=== PATIENT | female | born 1995 | race Caucasian/White ===

== ENCOUNTER 2018-09-05 11:56 | Outpatient (CLI) | payer MEDICAID ==
[~2018-09-05] VITALS: Ht 172.7 cm; Wt 89.1 kg
[2018-09-05 12:31] VITALS: BP 117/73
[2018-09-05 12:42] LABS: MICROSCOPIC INDICATED
[2018-09-05 12:49] LABS: AMPHETAMINE SCREEN, URINE Negative (Negative); BARBITURATE SCREEN, URINE Negative (Negative); BENZODIAZEPINE SCREEN, URINE Negative (Negative); CANNABINOID SCREEN, URINE Positive (Negative); COCAINE SCREEN, URINE Negative (Negative); METHADONE SCREEN, URINE Negative (Negative); OPIATE SCREEN, URINE Negative (Negative)
[2018-09-05] MEDS ORDERED: PREN1TAB60 PO (13:10)
== END 2018-09-05 13:37 | disposition home or self-care (01) ==
LOC: LDOP 11:56
PROVIDERS: ATTEND Student in an Organized Health Care Education/Training Program
DX: O36.8120 Decreased fetal movements, second trimester, not applicable or unspecified (principal); Z3A.00 Weeks of gestation of pregnancy not specified
CPT/HCPCS: 59025; 80307; 81001; 87086; 99201; G0463

== ENCOUNTER → 2018-10-23 | Outpatient (CLI) | payer SELFPAY ==
[~2018-10-23] VITALS: Ht 172.7 cm; Wt 100.0 kg
[~2018-10-23] MED LIST: PREN1TAB60 PO
[2018-10-23 13:48] VITALS: BP 119/75
[2018-10-23 13:49] LABS: MICROSCOPIC INDICATED
[2018-10-23 14:43] LABS: AMPHETAMINE SCREEN, URINE Negative (Negative); BARBITURATE SCREEN, URINE Negative (Negative); BENZODIAZEPINE SCREEN, URINE Negative (Negative); CANNABINOID SCREEN, URINE Negative (Negative); COCAINE SCREEN, URINE Negative (Negative); METHADONE SCREEN, URINE Negative (Negative); OPIATE SCREEN, URINE Negative (Negative)
== END | disposition home or self-care (01) ==
LOC: LDOP 13:12
PROVIDERS: ATTEND Student in an Organized Health Care Education/Training Program
DX: O26.893 Other specified pregnancy related conditions, third trimester (principal); Z3A.32 32 weeks gestation of pregnancy; R10.2 Pelvic and perineal pain
CPT/HCPCS: 59025; 80307; 81001; 87086; 99211; G0463

== ENCOUNTER 2018-11-11 00:22 | Outpatient (CLI) | payer MEDICAID ==
[~2018-11-11] VITALS: Ht 172.7 cm; Wt 100.0 kg
[2018-11-11 00:38] VITALS: BP 119/71
[2018-11-11 00:56] LABS: MICROSCOPIC INDICATED
== END 2018-11-11 01:34 | disposition home or self-care (01) ==
LOC: LDOP 00:22
PROVIDERS: ATTEND Student in an Organized Health Care Education/Training Program
DX: O63.9 Long labor, unspecified (principal); O26.893 Other specified pregnancy related conditions, third trimester; R50.9 Fever, unspecified; Z3A.34 34 weeks gestation of pregnancy
CPT/HCPCS: 59025; 81001; 87086; 99211; G0463

== ENCOUNTER 2018-11-24 18:13 | Outpatient (CLI) | payer MEDICAID ==
[~2018-11-24] VITALS: Ht 172.7 cm; Wt 104.0 kg
[2018-11-24 18:17] VITALS: BP 131/77
[2018-11-24 18:50] LABS: BASOPHILS # (AUTO) 0.04 x10^3/uL (0-0.1); BASOPHILS % (AUTO) 0 % (0-1); EOSINOPHILS # (AUTO) 0.05 x10^3/uL (0-0.4); EOSINOPHILS % (AUTO) 0 % (1-7); LYMPHOCYTES # (AUTO) 2.29 x10^3/uL (1-3.4); LYMPHOCYTES % (AUTO) 15 % (22-44); MD NO; MEAN CORPUSCULAR HEMOGLOBIN 32.5 pg (27.0-34.8); MEAN CORPUSCULAR HGB CONC 34.5 g/dL (32.4-35.8); MEAN PLATELET VOLUME 9.2 fL (7.4-10.4); MONOCYTES % (AUTO) 5 % (2-9); NEUTROPHILS % (AUTO) 79 % (42-75); PLATELET COUNT 193 x10^3/uL (130-400); RED BLOOD COUNT 3.71 x10^6/uL (3.82-5.3); RED CELL DISTRIBUTION WIDTH 12.9 % (9.6-15.2)
[2018-11-24 18:51] LABS: AMPHETAMINE SCREEN, URINE Negative (Negative); BARBITURATE SCREEN, URINE Negative (Negative); BENZODIAZEPINE SCREEN, URINE Negative (Negative); CANNABINOID SCREEN, URINE Negative (Negative); COCAINE SCREEN, URINE Negative (Negative); METHADONE SCREEN, URINE Negative (Negative); OPIATE SCREEN, URINE Negative (Negative)
[2018-11-24 19:03] LABS: ALBUMIN 2.4 g/dL (3.4-5.0); ANION GAP 6 mmol/L (5-15); CALCIUM 8.2 mg/dL (8.5-10.1); CHLORIDE 108 mmol/L (98-107)
[2018-11-24 19:04] LABS: PROTEIN/CREATININE RATIO,URINE < 101 (0-200); TOTAL PROTEIN,URINE RANDOM < 5 mg/dL (0-12)
[2018-11-24 19:06] LABS: ALANINE AMINOTRANSFERASE 14 U/L (12-78); ALKALINE PHOSPHATASE 112 U/L (45-117); BILIRUBIN,TOTAL 0.2 mg/dL (0.2-1.0); CREATININE 0.65 mg/dL (0.55-1.02); TOTAL PROTEIN 6.4 g/dL (6.4-8.2)
[2018-11-24 19:45] LABS: MICROSCOPIC AUTO
[2018-11-24 19:47] LABS: CULTURE INDICATED? YES
== END 2018-11-24 20:02 | disposition home or self-care (01) ==
LOC: LDOP 18:13
PROVIDERS: ATTEND Student in an Organized Health Care Education/Training Program
DX: O13.3 Gestational [pregnancy-induced] hypertension without significant proteinuria, third trimester (principal); O36.8130 Decreased fetal movements, third trimester, not applicable or unspecified; R51 Headache
CPT/HCPCS: 36415; 59025; 80053; 80307; 81001; 82570; 84156; 84550; 85025; 87086; 99211; G0463

== ENCOUNTER 2018-11-29 08:34 | Inpatient (IN) | payer MEDICAID ==
[~2018-11-29] VITALS: Ht 172.7 cm; Wt 104.1 kg
[2018-11-29 08:44] VITALS: BP 139/78
[2018-11-29 09:04] LABS: AMPHETAMINE SCREEN, URINE Negative (Negative); BARBITURATE SCREEN, URINE Negative (Negative); BENZODIAZEPINE SCREEN, URINE Negative (Negative); CANNABINOID SCREEN, URINE Negative (Negative); COCAINE SCREEN, URINE Negative (Negative); METHADONE SCREEN, URINE Negative (Negative); OPIATE SCREEN, URINE Negative (Negative)
[2018-11-29] MEDS ORDERED: METOCLOPRAMIDE 5 MG/ML, 2ML ONE (09:22)
[2018-11-29] MEDS ORDERED: OXYTOCIN 30U/ 0.9% NaCL 500ML 500 ML ONE (09:22)
[2018-11-29] MEDS ORDERED: SODIUM CITRATE/CITRIC ACID 30 ML UDC ONE (09:22)
[2018-11-29] MEDS ORDERED: NEWBORN KIT ONE (09:22)
[2018-11-29] MEDS ORDERED: OXYTOCIN 30U/ 0.9% NaCL 500ML 500 ML IV SCH (09:42)
[2018-11-29] MEDS ORDERED: METOCLOPRAMIDE 5 MG/ML, 2ML IV ONE (10:00)
[2018-11-29] MEDS ORDERED: SODIUM CITRATE/CITRIC ACID 30 ML UDC PO ONE (10:00)
[2018-11-29] MEDS ORDERED: LACTATED RINGERS 1,000 ML IVBOLUS ONE (10:00)
[2018-11-29 10:05] LABS: BASOPHILS # (AUTO) 0.05 x10^3/uL (0-0.1); BASOPHILS % (AUTO) 0 % (0-1); EOSINOPHILS # (AUTO) 0.04 x10^3/uL (0-0.4); EOSINOPHILS % (AUTO) 0 % (1-7); LYMPHOCYTES # (AUTO) 2.12 x10^3/uL (1-3.4); LYMPHOCYTES % (AUTO) 16 % (22-44); MD NO; MEAN CORPUSCULAR HEMOGLOBIN 31.7 pg (27.0-34.8); MEAN CORPUSCULAR HGB CONC 33.5 g/dL (32.4-35.8); MEAN CORPUSCULAR VOLUME 94.7 fL (80-100); MEAN PLATELET VOLUME 9.3 fL (7.4-10.4); MONOCYTES # (AUTO) 0.91 x10^3/uL (0.2-0.8); MONOCYTES % (AUTO) 7 % (2-9); NEUTROPHILS # (AUTO) 9.83 x10^3/uL (1.8-6.8); NEUTROPHILS % (AUTO) 76 % (42-75); PLATELET COUNT 205 x10^3/uL (130-400); RED BLOOD COUNT 4.12 x10^6/uL (3.82-5.3); RED CELL DISTRIBUTION WIDTH 13.1 % (9.6-15.2)
[2018-11-29] MEDS: LACTATED RINGERS 1,000 ML IV SCH ×4 (10:17→23:04)
[2018-11-29] MEDS ORDERED: morphine SULFATE/PF 0.5 MG/ML, 10ML ONE (11:58)
[2018-11-29] MEDS ORDERED: OXYTOCIN 10 UNITS/ML, 1ML ONE (11:59)
[2018-11-29] MEDS ORDERED: CEFAZOLIN 1,000 MG ONE (11:59)
[2018-11-29] MEDS ORDERED: DEXAMETHASONE 4 MG/ML, 1ML ONE (11:59)
[2018-11-29] MEDS ORDERED: WATER-INJECTION,STERILE 10 ML IV ONE (11:59)
[2018-11-29] MEDS ORDERED: ONDANSETRON 2MG/ML, 2ML ONE (11:59)
[2018-11-29] MEDS: OXYTOCIN 30U/ 0.9% NaCL 500ML 500 ML IV SCH ×2 (13:04→23:04)
[2018-11-29] MEDS ORDERED: LACTATED RINGERS 1,000 ML IV SCH (13:04)
[2018-11-29] MEDS ORDERED: METHYLERGONOVINE 0.2 MG/ML IM PRN (13:30)
[2018-11-29] MEDS ORDERED: MEPERIDINE/PF 100 MG/ML IVPush PRN (13:30)
[2018-11-29] MEDS ORDERED: ONDANSETRON 2MG/ML, 2ML IV PRN (13:30)
[2018-11-29] MEDS ORDERED: morphine SULFATE 10 MG/ML, 1ML IVPush PRN ×2 (13:30→14:00)
[2018-11-29] MEDS: KETOROLAC 30 MG/1 ML IV SCH ×2 (13:30→19:30)
[2018-11-29] MEDS ORDERED: MEPERIDINE/PF 50 MG/ML IVPush PRN (13:30)
[2018-11-29] MEDS ORDERED: MISOPROSTOL 200 MCG TABLET PR PRN (13:30)
[2018-11-29] MEDS ORDERED: ACETAMINOPHEN 325 MG TABLET PO PRN (13:30)
[2018-11-29] MEDS ORDERED: OXYcodone 5 MG/5 ML ORAL.SOL UDC ONE (13:50)
[2018-11-29] MEDS ORDERED: NO SEDATIVES, TRANQUILIZERS OR ANTIEMETICS XX SCH (14:00)
[2018-11-29] MEDS ORDERED: DIPHENHYDRAMINE 50 MG/ML, 1ML IV PRN (14:00)
[2018-11-29] MEDS ORDERED: NALOXONE 0.4 MG/ML, 1ML IV PRN (14:00)
[2018-11-29] MEDS ORDERED: METOCLOPRAMIDE 5 MG/ML, 2ML IV PRN (14:00)
[2018-11-29] MEDS ORDERED: EPHEDRINE 50 MG/ML, 1ML IVPush PRN (14:00)
[2018-11-29] MEDS ORDERED: OXYcodone/APAP 5/325MG TABLET PO PRN (14:00)
[2018-11-29] MEDS ORDERED: ONDANSETRON 2MG/ML, 2ML IVPush PRN (14:00)
[2018-11-29] MEDS ORDERED: OXYcodone 5 MG/5 ML ORAL.SOL UDC PO PRN (14:30)
[2018-11-29] MEDS ORDERED: DEXTROSE 40%, 37.5 GM GEL ONE (14:33)
[2018-11-29 15:00] VITALS: BP 135/87
[2018-11-29] MEDS: KETOROLAC 30 MG/1 ML IVPush PRN ×2 (16:00→22:19)
[2018-11-29 20:00] VITALS: BP 124/79
[2018-11-29] MEDS: DOCUSATE 100 MG CAPSULE PO PRN (20:00)
[2018-11-29 20:57] LABS: MEAN CORPUSCULAR HEMOGLOBIN 31.9 pg (27.0-34.8); MEAN CORPUSCULAR HGB CONC 33.4 g/dL (32.4-35.8); MEAN CORPUSCULAR VOLUME 95.4 fL (80-100); MEAN PLATELET VOLUME 9.3 fL (7.4-10.4); PLATELET COUNT 192 x10^3/uL (130-400); RED BLOOD COUNT 3.75 x10^6/uL (3.82-5.3); RED CELL DISTRIBUTION WIDTH 12.9 % (9.6-15.2)
[2018-11-29 21:29] LABS: BASOPHILS % (AUTO) 0 % (0-1); EOSINOPHILS % (AUTO) 0 % (1-7); LYMPHOCYTES # (AUTO) 1.27 x10^3/uL (1-3.4); LYMPHOCYTES % (AUTO) 7 % (22-44); MD SCAN; MONOCYTES # (AUTO) 0.54 x10^3/uL (0.2-0.8); MONOCYTES % (AUTO) 3 % (2-9); NEUTROPHILS # (AUTO) 17.21 x10^3/uL (1.8-6.8); NEUTROPHILS % (AUTO) 91 % (42-75)
[2018-11-29] MEDS ORDERED: RHOGAM FROM BLOOD BANK 1 NOTE EA IM/IV ONE (22:30)
[2018-11-29 23:34] VITALS: BP 118/73
[2018-11-30] MEDS: KETOROLAC 30 MG/1 ML IV SCH ×4 (01:30→22:03)
[2018-11-30] MEDS: KETOROLAC 30 MG/1 ML IVPush PRN (04:02)
[2018-11-30 04:05] VITALS: BP 117/70
[2018-11-30 08:00] VITALS: BP 94/64
[2018-11-30] MEDS: PRENATAL VIT/IRON/FA 1 EACH TABLET PO SCH (09:00)
[2018-11-30] MEDS: LACTATED RINGERS 1,000 ML IV SCH (09:04)
[2018-11-30] MEDS: OXYTOCIN 30U/ 0.9% NaCL 500ML 500 ML IV SCH (09:04)
[2018-11-30] MEDS: DOCUSATE 100 MG CAPSULE PO PRN ×2 (09:36→22:04)
[2018-11-30] MEDS: OXYcodone/APAP 5/325MG TABLET PO PRN (17:00)
[2018-11-30 19:45] VITALS: BP 109/69
[2018-11-30] MEDS ORDERED: DIPH,PERTUSS(ACELL),TET VAC/PF NC IM-VACC ONE (19:49)
[2018-12-01] MEDS: OXYcodone/APAP 5/325MG TABLET PO PRN ×4 (02:44→19:45)
[2018-12-01] MEDS: KETOROLAC 30 MG/1 ML IV SCH (04:00)
[2018-12-01] MEDS ORDERED: IBUPROFEN 600 MG TABLET ONE (04:41)
[2018-12-01] MEDS: IBUPROFEN 600 MG TABLET PO PRN ×3 (04:42→19:45)
[2018-12-01 08:00] VITALS: BP 109/75
[2018-12-01] MEDS: DOCUSATE 100 MG CAPSULE PO PRN ×2 (08:20→19:45)
[2018-12-01] MEDS: PRENATAL VIT/IRON/FA 1 EACH TABLET PO SCH (08:20)
[2018-12-01] MEDS ORDERED: IBUPROFEN 600 MG TABLET PO PRN (13:30)
[2018-12-01 19:40] VITALS: BP 116/72
[2018-12-02] MEDS: OXYcodone IR 5MG TABLET PO PRN ×2 (01:07→15:53)
[2018-12-02] MEDS: IBUPROFEN 600 MG TABLET PO PRN ×4 (01:55→22:03)
[2018-12-02] MEDS: SIMETHICONE 80 MG CHEW TAB PO PRN ×3 (01:55→15:56)
[2018-12-02] MEDS ORDERED: MEASLES,MUMPS&RUBELLA VACC/PF 0.5 ML SQ-VACC ONE ×2 (06:36→07:00)
[2018-12-02] MEDS: DOCUSATE 100 MG CAPSULE PO PRN ×2 (09:05→22:03)
[2018-12-02] MEDS: PRENATAL VIT/IRON/FA 1 EACH TABLET PO SCH (09:06)
[2018-12-02] MEDS: OXYcodone/APAP 5/325MG TABLET PO PRN ×3 (09:06→19:14)
[2018-12-02 10:00] VITALS: BP 121/85
[2018-12-02 20:10] VITALS: BP 125/83
[2018-12-03] MEDS: OXYcodone/APAP 5/325MG TABLET PO PRN ×4 (04:07→19:36)
[2018-12-03] MEDS: IBUPROFEN 600 MG TABLET PO PRN ×3 (04:07→19:35)
[2018-12-03 07:30] VITALS: BP 112/76
[2018-12-03] MEDS: DOCUSATE 100 MG CAPSULE PO PRN ×2 (07:57→19:35)
[2018-12-03] MEDS: PRENATAL VIT/IRON/FA 1 EACH TABLET PO SCH (08:41)
[2018-12-03] MEDS ORDERED: OXYC-302 PO (10:39)
[2018-12-03] MEDS ORDERED: IBUP-1222 PO (10:39)
== END 2018-12-03 21:25 | disposition home or self-care (01) | DRG 788 ==
LOC: LDOP 08:34 → LDIP 09:47 → 2NW 15:06
PROVIDERS: ADMIT Student in an Organized Health Care Education/Training Program; ATTEND Student in an Organized Health Care Education/Training Program
PROC: 10D00Z1 Extraction of Products of Conception, Low, Open Approach (ICD-10-PCS; principal; 2018-11-29)
PROC: 3E0334Z Introduction of Serum, Toxoid and Vaccine into Peripheral Vein, Percutaneous Approach (ICD-10-PCS; 2018-11-29)
DX: O32.1XX0 Maternal care for breech presentation, not applicable or unspecified (principal); O26.893 Other specified pregnancy related conditions, third trimester; Z37.0 Single live birth; Z3A.37 37 weeks gestation of pregnancy; Z80.3 Family history of malignant neoplasm of breast; Z80.41 Family history of malignant neoplasm of ovary; Z83.3 Family history of diabetes mellitus; Z67.41 Type O blood, Rh negative
CPT/HCPCS: 36415; 80307; 82803; 85025; 85461; 86850; 86900; 89060; G0378; J0690; J1100; J1885; J2274; J2405; J2790; J2590; J2765; J7120; Q0114

== ENCOUNTER 2020-11-12 22:23 | Emergency (ER) | payer MEDICAID ==
[~2020-11-12] VITALS: Ht 172.7 cm; Wt 94.3 kg
[~2020-11-12 22:23] MED LIST changes: +IBUP-1222 PO; +OXYC-302 PO
[2020-11-12 22:37] VITALS: BP 129/87
--- NOTE | 2020-11-12 23:35 | NUR ---
pt to room from lobby
[2020-11-12] MEDS ORDERED: ONDANSETRON 2MG/ML, 2ML ONE (23:49)
[2020-11-12] MEDS ORDERED: MORPHINE SULFATE 4 MG/ML, 1ML ONE (23:50)
[2020-11-13] MEDS ORDERED: SODIUM CHLORIDE 0.9% 1,000ML IVBOLUS ONE
--- NOTE | 2020-11-13 00:01 | NUR ---
PIV STARTED PT MEDICATED PER MAR, FLUIDS INFUSING W/OUT DIFFICULTY
--- NOTE | 2020-11-13 00:06 | NUR ---
URINE SENT TO LAB
[2020-11-13 00:08] LABS: BASOPHILS % (AUTO) 0 % (0-1); EOSINOPHILS % (AUTO) 1 % (1-7); LYMPHOCYTES % (AUTO) 26 % (22-44); MEAN CORPUSCULAR HGB CONC 33.6 g/dL (32.4-35.8); MEAN PLATELET VOLUME 8.7 fL (7.4-10.4); MONOCYTES % (AUTO) 7 % (2-9); NEUTROPHILS % (AUTO) 65 % (42-75); PLATELET COUNT 267 x10^3/uL (130-400); RED BLOOD COUNT 4.47 x10^6/uL (3.82-5.3); RED CELL DISTRIBUTION WIDTH 12.7 % (9.6-15.2)
[2020-11-13 00:09] LABS: MD NO
[2020-11-13 00:12] LABS: ALANINE AMINOTRANSFERASE 24 U/L (12-78); ALBUMIN 3.6 g/dL (3.4-5.0); ANION GAP 2 mmol/L (5-15); CALCIUM 9.1 mg/dL (8.5-10.1); CHLORIDE 106 mmol/L (98-107); CREATININE 0.91 mg/dL (0.55-1.02)
[2020-11-13 00:14] LABS: HCG UR SG 1.018 (1.003-1.030); MICROSCOPIC AUTO
[2020-11-13 00:14] LABS: ALKALINE PHOSPHATASE 77 U/L (45-117); BILIRUBIN,TOTAL 0.3 mg/dL (0.2-1.0); TOTAL PROTEIN 8.1 g/dL (6.4-8.2)
[2020-11-13] MEDS ORDERED: CEFTRIAXONE PMX 1GM/50ML 50 ML ONE (00:26)
--- NOTE | 2020-11-13 00:29 | NUR ---
ABX STARTED, PER ERP NO CULTURES TO BE DRAWN PRIOR
[2020-11-13] MEDS ORDERED: CEFTRIAXONE PMX 1GM/50ML 50 ML IVPB ONE (00:30)
[2020-11-13] MEDS ORDERED: MORPHINE SULFATE 4 MG/ML, 1ML ONE (00:31)
[2020-11-13] MEDS: MORPHINE SULFATE 4 MG/ML, 1ML IVPush PRN ×2 (00:33)
[2020-11-13] MEDS ORDERED: ONDANSETRON 2MG/ML, 2ML ONE (01:15)
[2020-11-13] MEDS ORDERED: KETOROLAC 30 MG/1 ML ONE (01:15)
--- NOTE | 2020-11-13 01:28 | NUR ---
Patient/Caregiver given discharge instructions and they have confirmed that they understand the instructions. Patient ambulatory with steady gait. piv dc prior to leaving facility
[2020-11-13] MEDS ORDERED: ONDANSETRON 2MG/ML, 2ML IVPush ONE ×2 (01:30)
[2020-11-13] MEDS ORDERED: KETOROLAC 30 MG/1 ML IVPush ONE (01:30)
== END 2020-11-13 01:29 | disposition home or self-care (01) ==
LOC: ED 11-13 01:00
DX: N10 Acute pyelonephritis (principal)
CPT/HCPCS: 36415; 80053; 81001; 81025; 83690; 85025; 87086; 96361; 96365; 96375; 96376; 99284; J0696; J1885; J2270; J2405; J7030

== ENCOUNTER 2021-02-15 12:38 | Inpatient (IN) | payer MEDICAID ==
[~2021-02-15] VITALS: Ht 180.3 cm; Wt 99.0 kg
[~2021-02-15 12:38] MED LIST changes: -OXYC-302 PO; +OXYC1TAB14 PO
--- NOTE | 2021-02-15 12:59 | NUR ---
ALL TRIAGE, ASSESSMENT AND CLINICAL QUESTIONS ANSWERED THROUGH FATHER WHO IS AT BEDSIDE.
--- NOTE | 2021-02-15 13:03 | NUR ---
CONTINUATION OF EMS LITER.
--- NOTE | 2021-02-15 13:12 | NUR ---
PT PLACED ON ALL MONITORING EQUIPMENT.
--- NOTE | 2021-02-15 13:19 | NUR ---
EMS LITER COMPLETED, ORDERED NS BOLUS INITIATED
[2021-02-15 13:46] LABS: BASOPHILS % (AUTO) 0 % (0-1); EOSINOPHILS % (AUTO) 0 % (1-7); LYMPHOCYTES % (AUTO) 2 % (22-44); MEAN CORPUSCULAR HEMOGLOBIN 30.2 pg (27.0-34.8); MEAN CORPUSCULAR HGB CONC 33.6 g/dL (32.4-35.8); MEAN PLATELET VOLUME 8.8 fL (7.4-10.4); MONOCYTES % (AUTO) 7 % (2-9); NEUTROPHILS % (AUTO) 90 % (42-75); PLATELET COUNT 202 x10^3/uL (130-400); RED BLOOD COUNT 3.91 x10^6/uL (3.82-5.3); RED CELL DISTRIBUTION WIDTH 12.5 % (9.6-15.2)
[2021-02-15 13:58] LABS: ALBUMIN 3.1 g/dL (3.4-5.0); ANION GAP 9 mmol/L (5-15); CALCIUM 7.9 mg/dL (8.5-10.1); CHLORIDE 106 mmol/L (98-107); CREATININE 0.92 mg/dL (0.55-1.02)
[2021-02-15] MEDS ORDERED: SODIUM CHLORIDE 0.9% 1,000ML IVBOLUS ONE (14:00)
[2021-02-15] MEDS ORDERED: SODIUM CHLORIDE FLUSH 10ML SYR IVF ONE (14:00)
--- NOTE | 2021-02-15 14:08 | NUR ---
PT ATTEMPTING TO GET OUT OF BED MULTIPLE TIMES. MOM AT BEDSIDE TO KEEP PT SAFE AND IN BED. PT REDIRECTED BACK TO BED. PT REMAINS AXOX1. PT TOLERATED STRAIGHT CATH AND UA SENT.
[2021-02-15 14:17] LABS: MD SCAN
--- NOTE | 2021-02-15 14:18 | NUR ---
ICE PACKS PLACED IN GROIN, ARMPITS, MOTHER AT BS.
[2021-02-15] MEDS ORDERED: CEFTRIAXONE PMX 2GM/50ML 50 ML ONE (14:24)
[2021-02-15 14:27] LABS: MICROSCOPIC NOT IND
[2021-02-15] MEDS ORDERED: CEFTRIAXONE PMX 1GM/50ML 50 ML IVPB ONE (14:30)
[2021-02-15] MEDS ORDERED: CEFTRIAXONE PMX 2GM/50ML 50 ML IVPB SCH ×2 (14:30→17:00)
--- NOTE | 2021-02-15 14:31 | NUR ---
2 LITER NS COMPLETED. PER MD RUTHERFORD TO BE ADMIN TO COVER FOR SEPSIS CRITERIA.
[2021-02-15 14:40] LABS: AMPHETAMINE SCREEN, URINE Negative (Negative); BARBITURATE SCREEN, URINE Negative (Negative); BENZODIAZEPINE SCREEN, URINE Negative (Negative); CANNABINOID SCREEN, URINE Negative (Negative); COCAINE SCREEN, URINE Negative (Negative); METHADONE SCREEN, URINE Negative (Negative); OPIATE SCREEN, URINE Negative (Negative)
[2021-02-15 14:41] LABS: SALICYLATE LEVEL < 1.7 mg/dL (2.8-20.0)
--- NOTE | 2021-02-15 14:45 | NUR ---
PT TO CT NOW WITH MOTHER AT SIDE.
--- NOTE | 2021-02-15 15:07 | NUR ---
PT BACK FROM CT ALL MONITORING EQUIPMENT IN PLACE.
--- NOTE | 2021-02-15 16:35 | NUR ---
BREAK RN: PT SLEEPING RESP EVEN AND UNLABORED, FAMILY AT BS
[2021-02-15] MEDS ORDERED: SODIUM CHLORIDE FLUSH 10ML SYR IVF PRN (17:00)
[2021-02-15] MEDS ORDERED: SODIUM CHLORIDE 0.9% 1,000 ML IV ONE (17:00)
[2021-02-15] MEDS ORDERED: ACETAMINOPHEN 325 MG TABLET PO PRN (17:00)
[2021-02-15] MEDS ORDERED: ONDANSETRON 2MG/ML, 2ML IVPush PRN (17:00)
[2021-02-15] MEDS ORDERED: ZOLPIDEM 5MG TABLET PO PRN (17:00)
[2021-02-15] MEDS ORDERED: HYDROcodone/APAP 5/325 TABLET PO PRN (17:00)
[2021-02-15] MEDS ORDERED: IBUPROFEN 600 MG TABLET PO PRN ×2 (17:00→21:06)
--- NOTE | 2021-02-15 17:27 | NUR ---
PT TO MRI. CERTIFIED MEDICAL TECHNICIAN ASSISTANT UNAVAILABLE TO TAKE PT TO FLOOR. WILL TAKE PT UP ONCE MRI IS COMPLETE.
[2021-02-15] MEDS ORDERED: LORazepam 2 MG/ML, 1ML IVPush PRN (17:30)
[2021-02-15] MEDS ORDERED: DOXYCYCLINE 100 MG in DEXTROSE 5% 250 ML IV SCH (17:30)
[2021-02-15 18:24] VITALS: BP 146/89
[2021-02-15] MEDS: LACTATED RINGERS 1,000 ML IV SCH (18:45)
[2021-02-15] MEDS: PIPERACILLIN/TAZO/PMX 3.375GM 50 ML IV SCH (19:38)
[2021-02-15] MEDS ORDERED: KETOROLAC 30 MG/1 ML IVPush PRN ×4 (21:00→21:30)
[2021-02-16] MEDS: LACTATED RINGERS 1,000 ML IV SCH ×4 (00:08→17:14)
[2021-02-16 02:58] VITALS: BP 148/99
[2021-02-16] MEDS: PIPERACILLIN/TAZO/PMX 3.375GM 50 ML IV SCH (03:13)
[2021-02-16 05:03] LABS: BASOPHILS % (AUTO) 0 % (0-1); EOSINOPHILS % (AUTO) 0 % (1-7); LYMPHOCYTES % (AUTO) 6 % (22-44); MEAN CORPUSCULAR HEMOGLOBIN 29.9 pg (27.0-34.8); MEAN CORPUSCULAR HGB CONC 33.8 g/dL (32.4-35.8); MEAN PLATELET VOLUME 9.3 fL (7.4-10.4); MONOCYTES % (AUTO) 9 % (2-9); NEUTROPHILS % (AUTO) 85 % (42-75); PLATELET COUNT 195 x10^3/uL (130-400); RED BLOOD COUNT 3.92 x10^6/uL (3.82-5.3); RED CELL DISTRIBUTION WIDTH 13.3 % (9.6-15.2)
[2021-02-16 05:13] LABS: ANION GAP 7 mmol/L (5-15); CALCIUM 8.7 mg/dL (8.5-10.1); CHLORIDE 100 mmol/L (98-107); CREATININE 0.61 mg/dL (0.55-1.02)
[2021-02-16 05:57] LABS: MD SCAN
[2021-02-16] MEDS ORDERED: CODE BLUE RESPONSE XX ONE ×2 (06:15→07:09)
[2021-02-16] MEDS ORDERED: EPINEPHRINE SYRINGE 0.1 MG/ML, 10ML ONE ×2 (06:15→10:14)
[2021-02-16] MEDS ORDERED: NOREPINEPHRINE 1 MG/ML, 4ML ONE (06:22)
[2021-02-16 06:59] LABS: MICROSCOPIC INDICATED
[2021-02-16] MEDS ORDERED: PHARMACOKINETIC MONITORING MC PRN (07:00)
[2021-02-16] MEDS ORDERED: GLUCAGON 1 MG IM PRN (07:00)
[2021-02-16] MEDS ORDERED: VANCOMYCIN PMX 1GM/200ML 200 ML IV ONE (07:00)
[2021-02-16] MEDS ORDERED: SENNA/DOCUSATE TABLET NG PRN (07:00)
[2021-02-16] MEDS ORDERED: PHARMACY MAY ADJ FOR RENAL FX MC SCH (07:00)
[2021-02-16] MEDS ORDERED: DEXTROSE 4 GM TAB.CHEW PO PRN (07:00)
[2021-02-16] MEDS ORDERED: LIDOCAINE-MPF 1%, 2ML ENDO PRN (07:00)
[2021-02-16] MEDS ORDERED: VANCOMYCIN 2,300 MG in SODIUM CHLORIDE 0.9% 500 ML IV ONE (07:00)
[2021-02-16] MEDS ORDERED: PHARMACY INSTRUCTION MC PRN (07:00)
[2021-02-16] MEDS ORDERED: PIPERACILLIN/TAZO/PMX 3.375GM 50 ML IV SCH (07:00)
[2021-02-16] MEDS ORDERED: VANCOMYCIN PER PHARMACY MC PRN (07:00)
[2021-02-16] MEDS ORDERED: PROPOFOL 100 ML IV PRN (07:00)
[2021-02-16] MEDS ORDERED: PHARMACOKINETIC CONSULTATION MC ONE (07:00)
[2021-02-16] MEDS ORDERED: EPINEPHRINE 5 MG in SODIUM CHLORIDE 0.9% 245 ML IV PRN (07:00)
[2021-02-16] MEDS ORDERED: SODIUM CHLORIDE 0.9% 1,000ML IVBOLUS ONE ×2 (07:00)
[2021-02-16] MEDS ORDERED: SODIUM BICARB 8.4%, 50ML SYRINGE IVPush ONE (07:00)
[2021-02-16] MEDS ORDERED: DEXTROSE 50%, 50ML SYRINGE IVPush PRN (07:00)
[2021-02-16] MEDS ORDERED: FENTANYL PF 100 MCG/2ML IVPush PRN (07:00)
[2021-02-16] MEDS ORDERED: POTASSIUM CHLORIDE 40 MEQ in SODIUM CHLORIDE 0.9% 100 ML IV ONE (07:00)
[2021-02-16] MEDS ORDERED: ONDANSETRON 2MG/ML, 2ML IV PRN (07:00)
[2021-02-16 07:05] LABS: AMPHETAMINE SCREEN, URINE Negative (Negative); BARBITURATE SCREEN, URINE Negative (Negative); BENZODIAZEPINE SCREEN, URINE Negative (Negative); CANNABINOID SCREEN, URINE Negative (Negative); COCAINE SCREEN, URINE Negative (Negative); METHADONE SCREEN, URINE Negative (Negative); OPIATE SCREEN, URINE Negative (Negative)
[2021-02-16] MEDS: NOREPINEPHRINE 8 MG in SODIUM CHLORIDE 0.9% 242 ML IV PRN ×3 (07:05→15:45)
[2021-02-16] MEDS ORDERED: POTASSIUM CHLORIDE 40MEQ/20ML IV ONE (07:09)
[2021-02-16] MEDS ORDERED: MAGNESIUM SULFATE 1 GM/2 ML ONE (07:09)
[2021-02-16] MEDS ORDERED: SODIUM BICARB 8.4%, 50ML SYRINGE ONE (07:13)
[2021-02-16] MEDS: CEFEPIME 2 GM in DEXTROSE 5% 100 ML IV SCH ×3 (07:25→22:46)
[2021-02-16] MEDS: METRONIDAZOLE PMX 500MG/100ML 100 ML IV SCH ×3 (07:26→19:12)
[2021-02-16 07:33] LABS: MEAN CORPUSCULAR HEMOGLOBIN 30.4 pg (27.0-34.8); MEAN CORPUSCULAR HGB CONC 32.3 g/dL (32.4-35.8); MEAN PLATELET VOLUME 8.8 fL (7.4-10.4); PLATELET COUNT 239 x10^3/uL (130-400); RED BLOOD COUNT 3.56 x10^6/uL (3.82-5.3); RED CELL DISTRIBUTION WIDTH 13.4 % (9.6-15.2)
[2021-02-16 07:40] LABS: ALANINE AMINOTRANSFERASE 71 U/L (12-78); ALBUMIN 2.4 g/dL (3.4-5.0); ANION GAP 19 mmol/L (5-15); CALCIUM 7.4 mg/dL (8.5-10.1); CHLORIDE 103 mmol/L (98-107); CREATININE 1.53 mg/dL (0.55-1.02)
[2021-02-16 07:42] LABS: ALKALINE PHOSPHATASE 72 U/L (45-117); BILIRUBIN,TOTAL 0.7 mg/dL (0.2-1.0); TOTAL PROTEIN 6.6 g/dL (6.4-8.2)
[2021-02-16 07:54] LABS: INTERNATIONAL NORMALIZED RATIO 1.28 (0.93-1.1); PROTHROMBIN TIME 13.6 Seconds (9.6-11.5)
[2021-02-16 07:55] LABS: MD YES
[2021-02-16 07:57] LABS: LYMPH#(MANUAL) 6.04 x10^3/uL (1-3.4); LYMPHS% (MANUAL) 20 % (22-44); MONOS#(MANUAL) 2.11 x10^3/uL (0.3-2.7); MONOS% (MANUAL) 7 % (2-9)
[2021-02-16 07:58] LABS: BAND#(MANUAL) 3.62 x10^3/uL; BANDS%(MANUAL) 12 % (0-7); SEGS% (MANUAL) 61 % (42-75)
[2021-02-16 07:59] LABS: <PLATELET ESTIMATE> ADEQUATE; <PLT MORPHOLOGY> NORMAL PLT MORPH; <RBC MORPHOLOGY> NORMAL
[2021-02-16] MEDS ORDERED: [UNRECOGNIZED DRUG - REMARK] MC PRN (08:17)
[2021-02-16] MEDS ORDERED: HEPARIN 5,000 UNITS/ML, 1ML IV ONE (09:00)
[2021-02-16] MEDS ORDERED: HEPARIN 25,000 UNITS/250ML PMX 250 ML IV PRN (09:00)
[2021-02-16] MEDS ORDERED: HEPARIN 5,000 UNITS/ML, 1ML IV PRN (09:00)
[2021-02-16 10:19] LABS: ANION GAP 16 mmol/L (5-15); CALCIUM 7.5 mg/dL (8.5-10.1); CHLORIDE 104 mmol/L (98-107); CREATININE 1.28 mg/dL (0.55-1.02)
[2021-02-16] MEDS: PANTOPRAZOLE 40 MG IV IVPush SCH (10:20)
[2021-02-16] MEDS: SODIUM CHLORIDE FLUSH 10ML SYR IVF SCH ×2 (10:39→19:14)
[2021-02-16] MEDS: PHENYLEPHRINE 50 MG in SODIUM CHLORIDE 0.9% 245 ML IV PRN (19:48)
[2021-02-16] MEDS ORDERED: VANCOMYCIN 1,800 MG in SODIUM CHLORIDE 0.9% 250 ML IV SCH (23:00)
[2021-02-17] MEDS: METRONIDAZOLE PMX 500MG/100ML 100 ML IV SCH ×4 (00:31→20:18)
[2021-02-17 03:47] VITALS: BP 96/61
[2021-02-17 04:21] LABS: ALANINE AMINOTRANSFERASE 74 U/L (12-78); ALBUMIN 2.1 g/dL (3.4-5.0); ANION GAP 6 mmol/L (5-15); CALCIUM 8.1 mg/dL (8.5-10.1); CHLORIDE 116 mmol/L (98-107); CREATININE 2.36 mg/dL (0.55-1.02)
[2021-02-17 04:24] LABS: ALKALINE PHOSPHATASE 54 U/L (45-117); BILIRUBIN,TOTAL 0.3 mg/dL (0.2-1.0); MEAN CORPUSCULAR HEMOGLOBIN 30.4 pg (27.0-34.8); MEAN CORPUSCULAR HGB CONC 33.6 g/dL (32.4-35.8); MEAN PLATELET VOLUME 8.8 fL (7.4-10.4); PLATELET COUNT 271 x10^3/uL (130-400); RED BLOOD COUNT 4.03 x10^6/uL (3.82-5.3); RED CELL DISTRIBUTION WIDTH 13.6 % (9.6-15.2); TOTAL PROTEIN 6.6 g/dL (6.4-8.2)
[2021-02-17 04:53] LABS: MD YES
[2021-02-17 04:55] LABS: BAND#(MANUAL) 2.91 x10^3/uL; BANDS%(MANUAL) 10 % (0-7); BASOS#(MANUAL) 0.29 x10^3/uL (0-0.1); BASOS% (MANUAL) 1 % (0-1); LYMPH#(MANUAL) 6.11 x10^3/uL (1-3.4); LYMPHS% (MANUAL) 21 % (22-44); MONOS#(MANUAL) 2.04 x10^3/uL (0.3-2.7); MONOS% (MANUAL) 7 % (2-9); SEG#(MANUAL) 17.75 x10^3/uL (1.8-6.8); SEGS% (MANUAL) 61 % (42-75)
[2021-02-17 04:58] LABS: <PLATELET ESTIMATE> ADEQUATE; <PLT MORPHOLOGY> NORMAL PLT MORPH; <RBC MORPHOLOGY> NORMAL; PMNS WITH VACUOLES 1+
[2021-02-17] MEDS: PHENYLEPHRINE 50 MG in SODIUM CHLORIDE 0.9% 245 ML IV PRN ×2 (05:39→16:19)
[2021-02-17] MEDS: CEFEPIME 2 GM in DEXTROSE 5% 100 ML IV SCH ×2 (06:26→19:16)
[2021-02-17] MEDS ORDERED: PHARMACY MAY ADJ FOR RENAL FX MC PRN (08:30)
[2021-02-17] MEDS: SODIUM CHLORIDE FLUSH 10ML SYR IVF SCH ×2 (09:04→20:20)
[2021-02-17] MEDS: PANTOPRAZOLE 40 MG IV IVPush SCH (09:04)
[2021-02-17] MEDS: NOREPINEPHRINE 8 MG in SODIUM CHLORIDE 0.9% 242 ML IV PRN (11:09)
[2021-02-17] MEDS ORDERED: [UNRECOGNIZED DRUG - REMARK] MC PRN (16:19)
[2021-02-17] MEDS ORDERED: CEFEPIME 2 GM in DEXTROSE 5% 100 ML IV SCH (18:00)
[2021-02-18] MEDS: METRONIDAZOLE PMX 500MG/100ML 100 ML IV SCH ×2 (02:19→08:49)
[2021-02-18] MEDS: PHENYLEPHRINE 50 MG in SODIUM CHLORIDE 0.9% 245 ML IV PRN ×3 (02:48→23:33)
[2021-02-18 04:48] LABS: BASOPHILS % (AUTO) 0 % (0-1); EOSINOPHILS % (AUTO) 1 % (1-7); LYMPHOCYTES % (AUTO) 12 % (22-44); MEAN CORPUSCULAR HEMOGLOBIN 30.3 pg (27.0-34.8); MEAN CORPUSCULAR HGB CONC 33.2 g/dL (32.4-35.8); MONOCYTES % (AUTO) 6 % (2-9); NEUTROPHILS % (AUTO) 81 % (42-75); PLATELET COUNT 234 x10^3/uL (130-400); RED BLOOD COUNT 3.98 x10^6/uL (3.82-5.3); RED CELL DISTRIBUTION WIDTH 13.8 % (9.6-15.2)
[2021-02-18 04:57] LABS: ALBUMIN 1.9 g/dL (3.4-5.0); ANION GAP 7 mmol/L (5-15); CALCIUM 8.4 mg/dL (8.5-10.1); CHLORIDE 122 mmol/L (98-107)
[2021-02-18 05:00] LABS: ALANINE AMINOTRANSFERASE 48 U/L (12-78); ALKALINE PHOSPHATASE 66 U/L (45-117); BILIRUBIN,TOTAL 0.5 mg/dL (0.2-1.0); CREATININE 3.06 mg/dL (0.55-1.02); TOTAL PROTEIN 6.5 g/dL (6.4-8.2); VANCOMYCIN,RANDOM 30.6 mcg/mL
[2021-02-18 05:45] LABS: MD SCAN
[2021-02-18] MEDS: CEFEPIME 2 GM in DEXTROSE 5% 100 ML IV SCH (07:00)
[2021-02-18] MEDS: PANTOPRAZOLE 40 MG IV IVPush SCH (08:49)
[2021-02-18] MEDS: SODIUM CHLORIDE FLUSH 10ML SYR IVF SCH ×2 (09:12→22:03)
[2021-02-18] MEDS ORDERED: POTASSIUM CHLORIDE 40 MEQ in SODIUM CHLORIDE 0.9% 100 ML IV ONE (09:30)
[2021-02-18] MEDS: CEFTRIAXONE PMX 2GM/50ML 50 ML IVPB SCH ×2 (09:53→22:02)
[2021-02-19 05:06] LABS: BASOPHILS % (AUTO) 0 % (0-1); EOSINOPHILS % (AUTO) 1 % (1-7); LYMPHOCYTES % (AUTO) 12 % (22-44); MD NO; MEAN CORPUSCULAR HEMOGLOBIN 29.8 pg (27.0-34.8); MEAN CORPUSCULAR HGB CONC 32.5 g/dL (32.4-35.8); MONOCYTES % (AUTO) 9 % (2-9); NEUTROPHILS % (AUTO) 77 % (42-75); PLATELET COUNT 248 x10^3/uL (130-400); RED BLOOD COUNT 3.95 x10^6/uL (3.82-5.3); RED CELL DISTRIBUTION WIDTH 14.2 % (9.6-15.2)
[2021-02-19 05:14] LABS: ANION GAP 5 mmol/L (5-15); CALCIUM 9.4 mg/dL (8.5-10.1)
[2021-02-19 05:17] LABS: CREATININE 3.72 mg/dL (0.55-1.02); TRIGLYCERIDES 151 mg/dL (50-200); VANCOMYCIN,RANDOM 19.2 mcg/mL
[2021-02-19 05:25] LABS: CHLORIDE 131 mmol/L (98-107)
[2021-02-19] MEDS: CEFTRIAXONE PMX 2GM/50ML 50 ML IVPB SCH ×2 (08:10→21:59)
[2021-02-19] MEDS: PANTOPRAZOLE 40 MG IV IVPush SCH (08:14)
[2021-02-19] MEDS: SODIUM CHLORIDE FLUSH 10ML SYR IVF SCH ×2 (08:15→21:59)
[2021-02-19] MEDS ORDERED: POTASSIUM CHLORIDE 20 MEQ PACKET PO ONE (09:30)
[2021-02-19] MEDS: PHENYLEPHRINE 50 MG in SODIUM CHLORIDE 0.9% 245 ML IV PRN (09:38)
[2021-02-19] MEDS: DEXTROSE 5% 1,000 ML IV SCH ×2 (09:38→17:17)
[2021-02-19] MEDS ORDERED: VANCOMYCIN 1,800 MG in SODIUM CHLORIDE 0.9% 250 ML IV ONE (14:30)
[2021-02-19 14:53] LABS: ANION GAP 5 mmol/L (5-15); CALCIUM 9.4 mg/dL (8.5-10.1); CHLORIDE 130 mmol/L (98-107); CREATININE 4.13 mg/dL (0.55-1.02)
[2021-02-19] MEDS ORDERED: VANCOMYCIN IV ONE (15:00)
[2021-02-19] MEDS ORDERED: DEXTROSE 5% IV ONE (15:00)
[2021-02-19] MEDS: KSCALE TO 4.0 IV SCH ×2 (16:00→22:45)
[2021-02-19] MEDS ORDERED: POTASSIUM CHLORIDE PMX 100 ML IV ONE ×2 (17:00→17:30)
[2021-02-19 17:37] LABS: ANION GAP 5 mmol/L (5-15); CALCIUM 9.4 mg/dL (8.5-10.1); CHLORIDE 128 mmol/L (98-107)
[2021-02-19 17:38] LABS: CREATININE 4.33 mg/dL (0.55-1.02)
[2021-02-19] MEDS: SODIUM BICARBONATE 8.4% 150 MEQ in DEXTROSE 5% 1,000 ML IV SCH (17:57)
[2021-02-19] MEDS: PHENYLEPHRINE IV PRN (17:58)
[2021-02-19] MEDS: DEXTROSE 5% IV PRN (17:58)
[2021-02-19] MEDS ORDERED: NOREPINEPHRINE 8 MG in DEXTROSE 5% 242 ML IV PRN (18:00)
[2021-02-19 23:13] LABS: ANION GAP 5 mmol/L (5-15); CALCIUM 8.6 mg/dL (8.5-10.1); CHLORIDE 121 mmol/L (98-107); CREATININE 4.17 mg/dL (0.55-1.02)
[2021-02-20] MEDS: SODIUM BICARBONATE 8.4% 150 MEQ in DEXTROSE 5% 1,000 ML IV SCH (02:07)
[2021-02-20] MEDS: DEXTROSE 5% IV PRN ×2 (03:17→16:05)
[2021-02-20] MEDS: PHENYLEPHRINE IV PRN ×2 (03:17→16:05)
[2021-02-20 05:12] LABS: BASOPHILS % (AUTO) 0 % (0-1); EOSINOPHILS % (AUTO) 2 % (1-7); LYMPHOCYTES % (AUTO) 11 % (22-44); MEAN CORPUSCULAR HEMOGLOBIN 30.2 pg (27.0-34.8); MEAN CORPUSCULAR HGB CONC 32.8 g/dL (32.4-35.8); MEAN PLATELET VOLUME 9.4 fL (7.4-10.4); MONOCYTES % (AUTO) 9 % (2-9); NEUTROPHILS % (AUTO) 78 % (42-75); PLATELET COUNT 242 x10^3/uL (130-400); RED BLOOD COUNT 3.62 x10^6/uL (3.82-5.3); RED CELL DISTRIBUTION WIDTH 14.8 % (9.6-15.2)
[2021-02-20 05:14] LABS: MD NO
[2021-02-20] MEDS: KSCALE TO 4.0 IV SCH ×3 (05:15→16:00)
[2021-02-20 05:22] LABS: ANION GAP 3 mmol/L (5-15); CALCIUM 8.1 mg/dL (8.5-10.1); CHLORIDE 115 mmol/L (98-107)
[2021-02-20 05:23] LABS: CREATININE 4.22 mg/dL (0.55-1.02)
[2021-02-20] MEDS: CEFTRIAXONE PMX 2GM/50ML 50 ML IVPB SCH (10:07)
[2021-02-20] MEDS: SODIUM CHLORIDE FLUSH 10ML SYR IVF SCH (10:08)
[2021-02-20] MEDS: PANTOPRAZOLE 40 MG IV IVPush SCH (10:35)
[2021-02-20 17:38] LABS: ANION GAP 7 mmol/L (5-15); CALCIUM 8.3 mg/dL (8.5-10.1); CHLORIDE 112 mmol/L (98-107)
== END 2021-02-20 17:00 | disposition expired | DRG 871 ==
LOC: ED 16:25 → EDIP 16:32 → ED 17:02 → 3N 18:13 → CCU 02-16 06:15
PROVIDERS: ADMIT Internal Medicine; ATTEND Internal Medicine
PROC: 0T9B70Z Drainage of Bladder with Drainage Device, Via Natural or Artificial Opening (ICD-10-PCS; principal; 2021-02-16)
PROC: 0BH17EZ Insertion of Endotracheal Airway into Trachea, Via Natural or Artificial Opening (ICD-10-PCS; 2021-02-16)
PROC: 5A12012 Performance of Cardiac Output, Single, Manual (ICD-10-PCS; 2021-02-16)
PROC: 5A1945Z Respiratory Ventilation, 24-96 Consecutive Hours (ICD-10-PCS; 2021-02-16)
DX: A40.3 Sepsis due to Streptococcus pneumoniae (principal); G00.1 Pneumococcal meningitis; G93.41 Metabolic encephalopathy; I21.A1 Myocardial infarction type 2; I46.9 Cardiac arrest, cause unspecified; J96.01 Acute respiratory failure with hypoxia; N17.0 Acute kidney failure with tubular necrosis; R65.21 Severe sepsis with septic shock; E87.0 Hyperosmolality and hypernatremia; E87.1 Hypo-osmolality and hyponatremia; E87.2 Acidosis; G93.1 Anoxic brain damage, not elsewhere classified; H70.001 Acute mastoiditis without complications, right ear; I50.20 Unspecified systolic (congestive) heart failure; I51.81 Takotsubo syndrome; Z99.11 Dependence on respirator [ventilator] status; Z20.822 Contact with and (suspected) exposure to COVID-19; E83.42 Hypomagnesemia; E87.6 Hypokalemia; E88.09 Other disorders of plasma-protein metabolism, not elsewhere classified; H66.91 Otitis media, unspecified, right ear; I27.20 Pulmonary hypertension, unspecified; I37.1 Nonrheumatic pulmonary valve insufficiency; Z83.3 Family history of diabetes mellitus
CPT/HCPCS: 36415; 36600; 70450; 70551; 71045; 80048; 80053; 80143; 80179; 80202; 80307; 80320; 81001; 81003; 82040; 82533; 82550; 82803; 82962; 83605; 83735; 84145; 84478; 84484; 84703; 85025; 85520; 85610; 85730; 87040; 87070; 87077; 87081; 87181; 87205; 92950; 93005; 93306; 94002; 94003; 95819; 96374; 96375; 99285; G0378; J0696; J1644; J1885; J2543; J3370; J3475; J3480; J7060; J7070; C9113; G0480; J2370; J7030; J7040; J7050; J7120; U0003

== ENCOUNTER 2021-02-20 11:26 | Inpatient (IN) | payer OTHER ==
[2021-02-20] MEDS ORDERED: POTASSIUM PHOSPHATE 15 MMOL in SODIUM CHLORIDE 0.9% 250 ML IV PRN (19:30)
[2021-02-20] MEDS ORDERED: POTASSIUM PHOSPHATE 30 MMOL in SODIUM CHLORIDE 0.9% 250 ML IV PRN (19:30)
[2021-02-20] MEDS ORDERED: VASOPRESSIN 20 UNIT in SODIUM CHLORIDE 0.9% 99 ML IV PRN (19:30)
[2021-02-20] MEDS ORDERED: POTASSIUM CHLORIDE 60 MEQ in SODIUM CHLORIDE 0.9% 100 ML IV PRN (19:30)
[2021-02-20] MEDS ORDERED: POTASSIUM PHOSPHATE 21 MMOL in SODIUM CHLORIDE 0.9% 250 ML IV PRN (19:30)
[2021-02-20] MEDS ORDERED: MAGNESIUM SULFATE PMX 2GM/50ML 50 ML IVPB PRN (20:00)
[2021-02-20] MEDS ORDERED: D5%-0.2% NACL 1,000 ML IV SCH (20:00)
[2021-02-20] MEDS ORDERED: MAGNESIUM SULFATE PMX 4GM/100M 100 ML IVPB PRN (20:00)
[2021-02-20] MEDS ORDERED: CALCIUM CHLORIDE 13.6 MEQ in SODIUM CHLORIDE 0.9% 50 ML IV PRN (20:00)
[2021-02-20] MEDS ORDERED: POTASSIUM CHLORIDE 40 MEQ in SODIUM CHLORIDE 0.9% 100 ML IV PRN (20:00)
[2021-02-20] MEDS ORDERED: FLUCONAZOLE 200 MG/100 ML 100 ML IV ONE (20:00)
[2021-02-20] MEDS ORDERED: DOPAMINE/D5W PMX 250 ML IV PRN (20:00)
[2021-02-20] MEDS ORDERED: PHENYLEPHRINE 50 MG in SODIUM CHLORIDE 0.9% 245 ML IV PRN (20:00)
[2021-02-20 20:13] LABS: BASOPHILS % (AUTO) 0 % (0-1); EOSINOPHILS % (AUTO) 2 % (1-7); LYMPHOCYTES % (AUTO) 13 % (22-44); MEAN CORPUSCULAR HEMOGLOBIN 29.5 pg (27.0-34.8); MEAN CORPUSCULAR HGB CONC 32.5 g/dL (32.4-35.8); MEAN PLATELET VOLUME 9.5 fL (7.4-10.4); MONOCYTES % (AUTO) 9 % (2-9); NEUTROPHILS % (AUTO) 76 % (42-75); PLATELET COUNT 229 x10^3/uL (130-400); RED BLOOD COUNT 3.63 x10^6/uL (3.82-5.3); RED CELL DISTRIBUTION WIDTH 14.4 % (9.6-15.2)
[2021-02-20 20:21] LABS: ALBUMIN 1.7 g/dL (3.4-5.0); ANION GAP 6 mmol/L (5-15); CALCIUM 8.2 mg/dL (8.5-10.1); CHLORIDE 113 mmol/L (98-107)
[2021-02-20 20:22] LABS: INTERNATIONAL NORMALIZED RATIO 1.52 (0.93-1.1); PROTHROMBIN TIME 16.1 Seconds (9.6-11.5)
[2021-02-20 20:25] LABS: ALANINE AMINOTRANSFERASE 36 U/L (12-78); ALKALINE PHOSPHATASE 109 U/L (45-117); BILIRUBIN, DIRECT < 0.1 mg/dL (0.1-0.2); BILIRUBIN,INDIRECT 0.2 mg/dL (0.0-2.0); BILIRUBIN,TOTAL 0.3 mg/dL (0.2-1.0); CREATININE 4.27 mg/dL (0.55-1.02); TOTAL PROTEIN 6.5 g/dL (6.4-8.2); TROPONIN I 0.311 ng/mL (0.000-0.045)
[2021-02-20] MEDS ORDERED: VECURONIUM 10 MG IVPush ONE (20:30)
[2021-02-20 20:39] LABS: MD NO
[2021-02-20] MEDS: FAMOTIDINE 20 MG/2 ML IVPush SCH (20:52)
[2021-02-20] MEDS: PANTOPRAZOLE 40 MG IV IV SCH (20:52)
[2021-02-20] MEDS: PIPERACILLIN/TAZO 3.375 GM in SODIUM CHLORIDE 0.9% 50 ML IVPB SCH (21:24)
[2021-02-20] MEDS: DEXTROSE 5% IV SCH (21:30)
[2021-02-20] MEDS: LEVOTHYROXINE 200 MCG in SODIUM CHLORIDE 0.9% 500 ML IV SCH (21:30)
[2021-02-20] MEDS: ARTIFICIAL TEARS 15 DROP/ML BOTTLE EACHEYE SCH ×2 (21:30→22:22)
[2021-02-20] MEDS: METHYLPREDNISOLONE SOD SUCC IV SCH (21:30)
[2021-02-20 22:31] LABS: MICROSCOPIC INDICATED
[2021-02-20] MEDS: ALBUTEROL SULFATE 2.5MG/0.5ML NEB SCH (23:00)
[2021-02-21] MEDS: ARTIFICIAL TEARS 15 DROP/ML BOTTLE EACHEYE SCH ×12 (00:13→21:59)
[2021-02-21 02:22] LABS: BASOPHILS % (AUTO) 0 % (0-1); EOSINOPHILS % (AUTO) 0 % (1-7); LYMPHOCYTES % (AUTO) 5 % (22-44); MEAN CORPUSCULAR HEMOGLOBIN 29.8 pg (27.0-34.8); MEAN CORPUSCULAR HGB CONC 32.9 g/dL (32.4-35.8); MEAN PLATELET VOLUME 9.3 fL (7.4-10.4); MONOCYTES % (AUTO) 3 % (2-9); NEUTROPHILS % (AUTO) 91 % (42-75); PLATELET COUNT 218 x10^3/uL (130-400); RED BLOOD COUNT 3.46 x10^6/uL (3.82-5.3); RED CELL DISTRIBUTION WIDTH 14.5 % (9.6-15.2)
[2021-02-21 02:23] LABS: MD NO
[2021-02-21 02:35] LABS: ALANINE AMINOTRANSFERASE 34 U/L (12-78); ALBUMIN 1.7 g/dL (3.4-5.0); ANION GAP 10 mmol/L (5-15); BILIRUBIN, DIRECT 0.1 mg/dL (0.1-0.2); CALCIUM 8.1 mg/dL (8.5-10.1); CHLORIDE 111 mmol/L (98-107); CREATININE 3.99 mg/dL (0.55-1.02)
[2021-02-21 02:39] LABS: ALKALINE PHOSPHATASE 102 U/L (45-117); BILIRUBIN,INDIRECT 0.2 mg/dL (0.0-2.0); BILIRUBIN,TOTAL 0.3 mg/dL (0.2-1.0); TOTAL PROTEIN 6.7 g/dL (6.4-8.2); TROPONIN I 0.176 ng/mL (0.000-0.045)
[2021-02-21 02:51] LABS: INTERNATIONAL NORMALIZED RATIO 1.54 (0.93-1.1); PROTHROMBIN TIME 16.3 Seconds (9.6-11.5)
[2021-02-21] MEDS: ALBUTEROL SULFATE 2.5MG/0.5ML NEB SCH ×6 (03:00→22:18)
[2021-02-21] MEDS ORDERED: INSULIN REGULAR 100 UNITS/ML, 3ML VIAL ONE (03:22)
[2021-02-21] MEDS: PIPERACILLIN/TAZO 3.375 GM in SODIUM CHLORIDE 0.9% 50 ML IVPB SCH ×3 (03:59→15:23)
[2021-02-21] MEDS ORDERED: INSULIN REGULAR 100 UNITS/ML, 3ML VIAL IVPush ONE ×9 (08:00→15:30)
[2021-02-21 08:46] LABS: BASOPHILS % (AUTO) 0 % (0-1); EOSINOPHILS % (AUTO) 0 % (1-7); LYMPHOCYTES % (AUTO) 6 % (22-44); MEAN CORPUSCULAR HEMOGLOBIN 30.2 pg (27.0-34.8); MEAN CORPUSCULAR HGB CONC 33.2 g/dL (32.4-35.8); MEAN PLATELET VOLUME 9.3 fL (7.4-10.4); MONOCYTES % (AUTO) 4 % (2-9); NEUTROPHILS % (AUTO) 91 % (42-75); PLATELET COUNT 195 x10^3/uL (130-400); RED BLOOD COUNT 3.44 x10^6/uL (3.82-5.3); RED CELL DISTRIBUTION WIDTH 14.5 % (9.6-15.2)
[2021-02-21 08:56] LABS: INTERNATIONAL NORMALIZED RATIO 1.4 (0.93-1.1); PROTHROMBIN TIME 14.9 Seconds (9.6-11.5)
[2021-02-21 08:57] LABS: ALANINE AMINOTRANSFERASE 34 U/L (12-78); ALBUMIN 1.8 g/dL (3.4-5.0); ANION GAP 9 mmol/L (5-15); BILIRUBIN, DIRECT 0.1 mg/dL (0.1-0.2); CALCIUM 7.6 mg/dL (8.5-10.1); CHLORIDE 111 mmol/L (98-107); CREATININE 4.26 mg/dL (0.55-1.02)
[2021-02-21] MEDS ORDERED: ALBUMIN HUMAN 25% 50 ML IV ONE ×2 (09:00→10:30)
[2021-02-21 09:01] LABS: ALKALINE PHOSPHATASE 103 U/L (45-117); BILIRUBIN,INDIRECT 0.1 mg/dL (0.0-2.0); BILIRUBIN,TOTAL 0.2 mg/dL (0.2-1.0); TOTAL PROTEIN 7.2 g/dL (6.4-8.2); TROPONIN I 0.142 ng/mL (0.000-0.045)
[2021-02-21 09:03] LABS: MD SCAN
[2021-02-21] MEDS: FAMOTIDINE 20 MG/2 ML IVPush SCH ×2 (09:30→19:49)
[2021-02-21 10:28] LABS: FIO2 30 %
[2021-02-21] MEDS ORDERED: ALBUTEROL SULFATE 2.5 MG/3 ML ONE ×2 (10:45→13:46)
[2021-02-21] MEDS: POTASSIUM CHLORIDE PMX 20MEQ/100 ML IVPB PRN ×2 (11:05→16:49)
[2021-02-21] MEDS: REGULAR INSULIN 100 UNITS in SODIUM CHLORIDE 0.9% 99 ML IV SCH (11:52)
[2021-02-21] MEDS ORDERED: SODIUM CHLORIDE 0.45% 500 ML IV SCH (12:30)
[2021-02-21] MEDS: FUROSEMIDE 20 MG/2 ML IV ONE ×2 (14:00→14:07)
[2021-02-21] MEDS: LEVOTHYROXINE 200 MCG in SODIUM CHLORIDE 0.9% 500 ML IV SCH (14:22)
[2021-02-21 15:30] LABS: BASOPHILS % (AUTO) 0 % (0-1); EOSINOPHILS % (AUTO) 0 % (1-7); LYMPHOCYTES % (AUTO) 7 % (22-44); MEAN CORPUSCULAR HEMOGLOBIN 29.8 pg (27.0-34.8); MEAN PLATELET VOLUME 9.2 fL (7.4-10.4); MONOCYTES % (AUTO) 7 % (2-9); NEUTROPHILS % (AUTO) 86 % (42-75); PLATELET COUNT 161 x10^3/uL (130-400); RED BLOOD COUNT 3.11 x10^6/uL (3.82-5.3); RED CELL DISTRIBUTION WIDTH 14.1 % (9.6-15.2)
[2021-02-21 15:35] LABS: MD NO
[2021-02-21 15:39] LABS: ALBUMIN 2.1 g/dL (3.4-5.0); ANION GAP 9 mmol/L (5-15); CALCIUM 7.7 mg/dL (8.5-10.1); CHLORIDE 113 mmol/L (98-107)
[2021-02-21 15:46] LABS: ALANINE AMINOTRANSFERASE 31 U/L (12-78); ALKALINE PHOSPHATASE 90 U/L (45-117); BILIRUBIN, DIRECT < 0.1 mg/dL (0.1-0.2); BILIRUBIN,INDIRECT 0.1 mg/dL (0.0-2.0); BILIRUBIN,TOTAL 0.2 mg/dL (0.2-1.0); TROPONIN I 0.109 ng/mL (0.000-0.045)
[2021-02-21 16:19] LABS: INTERNATIONAL NORMALIZED RATIO 1.42 (0.93-1.1); PROTHROMBIN TIME 15.1 Seconds (9.6-11.5)
[2021-02-21] MEDS ORDERED: LABETALOL 5MG/ML, 20ML ONE (17:13)
[2021-02-21] MEDS ORDERED: LABETALOL 5MG/ML, 20ML IVPush ONE (17:30)
[2021-02-21] MEDS ORDERED: FUROSEMIDE 20 MG/2 ML ONE (19:43)
[2021-02-21] MEDS: PANTOPRAZOLE 40 MG IV IV SCH (19:49)
[2021-02-21] MEDS ORDERED: FUROSEMIDE 20 MG/2 ML IV ONE (20:00)
[2021-02-21 20:43] LABS: BASOPHILS % (AUTO) 0 % (0-1); EOSINOPHILS % (AUTO) 0 % (1-7); LYMPHOCYTES % (AUTO) 7 % (22-44); MEAN CORPUSCULAR HEMOGLOBIN 29.8 pg (27.0-34.8); MEAN CORPUSCULAR HGB CONC 32.9 g/dL (32.4-35.8); MEAN PLATELET VOLUME 9.3 fL (7.4-10.4); MONOCYTES % (AUTO) 5 % (2-9); NEUTROPHILS % (AUTO) 89 % (42-75); PLATELET COUNT 170 x10^3/uL (130-400); RED BLOOD COUNT 3.02 x10^6/uL (3.82-5.3)
[2021-02-21 20:54] LABS: ALANINE AMINOTRANSFERASE 29 U/L (12-78); ALBUMIN 2.1 g/dL (3.4-5.0); ANION GAP 10 mmol/L (5-15); BILIRUBIN, DIRECT 0.1 mg/dL (0.1-0.2); CALCIUM 8.2 mg/dL (8.5-10.1); CHLORIDE 114 mmol/L (98-107); CREATININE 3.95 mg/dL (0.55-1.02)
[2021-02-21 20:55] LABS: INTERNATIONAL NORMALIZED RATIO 1.44 (0.93-1.1); PROTHROMBIN TIME 15.3 Seconds (9.6-11.5)
[2021-02-21 20:59] LABS: ALKALINE PHOSPHATASE 86 U/L (45-117); BILIRUBIN,INDIRECT 0.2 mg/dL (0.0-2.0); BILIRUBIN,TOTAL 0.3 mg/dL (0.2-1.0); TROPONIN I 0.135 ng/mL (0.000-0.045)
[2021-02-21 21:02] LABS: MD SCAN
[2021-02-21] MEDS: METHYLPREDNISOLONE SOD SUCC IV SCH (21:18)
[2021-02-21] MEDS: DEXTROSE 5% IV SCH (21:18)
[2021-02-21] MEDS: PIPERACILLIN/TAZO 2.25 GM in SODIUM CHLORIDE 0.9% 50 ML IVPB SCH (22:02)
[2021-02-22] MEDS: ARTIFICIAL TEARS 15 DROP/ML BOTTLE EACHEYE SCH ×14 (00:15→23:39)
[2021-02-22] MEDS ORDERED: INSULIN REGULAR 100 UNITS/ML, 3ML VIAL IVPush ONE ×11 (00:30→14:30)
[2021-02-22 00:55] LABS: MICROSCOPIC INDICATED
[2021-02-22] MEDS: ALBUTEROL SULFATE 2.5MG/0.5ML NEB SCH ×6 (02:17→23:00)
[2021-02-22 02:53] LABS: BASOPHILS % (AUTO) 0 % (0-1); EOSINOPHILS % (AUTO) 0 % (1-7); LYMPHOCYTES % (AUTO) 5 % (22-44); MEAN CORPUSCULAR HEMOGLOBIN 29.9 pg (27.0-34.8); MEAN PLATELET VOLUME 9.4 fL (7.4-10.4); MONOCYTES % (AUTO) 6 % (2-9); NEUTROPHILS % (AUTO) 89 % (42-75); PLATELET COUNT 154 x10^3/uL (130-400); RED BLOOD COUNT 2.92 x10^6/uL (3.82-5.3); RED CELL DISTRIBUTION WIDTH 14.2 % (9.6-15.2)
[2021-02-22 02:56] LABS: MD NO
[2021-02-22 03:03] LABS: ALANINE AMINOTRANSFERASE 27 U/L (12-78); ANION GAP 12 mmol/L (5-15); BILIRUBIN, DIRECT 0.1 mg/dL (0.1-0.2); CALCIUM 8.2 mg/dL (8.5-10.1); CHLORIDE 114 mmol/L (98-107); CREATININE 4.02 mg/dL (0.55-1.02)
[2021-02-22 03:07] LABS: ALKALINE PHOSPHATASE 77 U/L (45-117); BILIRUBIN,INDIRECT 0.2 mg/dL (0.0-2.0); BILIRUBIN,TOTAL 0.3 mg/dL (0.2-1.0); TOTAL PROTEIN 6.8 g/dL (6.4-8.2); TROPONIN I 0.142 ng/mL (0.000-0.045)
[2021-02-22 03:09] LABS: INTERNATIONAL NORMALIZED RATIO 1.45 (0.93-1.1); PROTHROMBIN TIME 15.4 Seconds (9.6-11.5)
[2021-02-22] MEDS ORDERED: POTASSIUM CHLORIDE PMX 100 ML IV ONE ×2 (03:30→21:30)
[2021-02-22] MEDS: PIPERACILLIN/TAZO 2.25 GM in SODIUM CHLORIDE 0.9% 50 ML IVPB SCH ×4 (03:47→22:35)
[2021-02-22] MEDS ORDERED: LABETALOL 5MG/ML, 20ML IVPush ONE ×2 (07:00→09:30)
[2021-02-22] MEDS ORDERED: INSULIN REGULAR 100 UNITS/ML, 3ML VIAL SQ-INSULIN SCH (07:00)
[2021-02-22 08:32] LABS: BASOPHILS % (AUTO) 0 % (0-1); EOSINOPHILS % (AUTO) 0 % (1-7); LYMPHOCYTES % (AUTO) 4 % (22-44); MEAN CORPUSCULAR HGB CONC 32.8 g/dL (32.4-35.8); MEAN PLATELET VOLUME 9.8 fL (7.4-10.4); MONOCYTES % (AUTO) 5 % (2-9); NEUTROPHILS % (AUTO) 90 % (42-75); PLATELET COUNT 148 x10^3/uL (130-400); RED BLOOD COUNT 3.97 x10^6/uL (3.82-5.3); RED CELL DISTRIBUTION WIDTH 14.5 % (9.6-15.2)
[2021-02-22 08:35] LABS: INTERNATIONAL NORMALIZED RATIO 1.48 (0.93-1.1); PROTHROMBIN TIME 15.7 Seconds (9.6-11.5)
[2021-02-22 08:37] LABS: ALBUMIN 2.2 g/dL (3.4-5.0); ANION GAP 8 mmol/L (5-15); CALCIUM 8.4 mg/dL (8.5-10.1); CHLORIDE 116 mmol/L (98-107)
[2021-02-22 08:42] LABS: ALANINE AMINOTRANSFERASE 25 U/L (12-78); ALKALINE PHOSPHATASE 72 U/L (45-117); BILIRUBIN, DIRECT 0.1 mg/dL (0.1-0.2); BILIRUBIN,INDIRECT 0.2 mg/dL (0.0-2.0); BILIRUBIN,TOTAL 0.3 mg/dL (0.2-1.0); CREATINE KINASE, TOTAL 182 U/L (26-192); CREATININE 4.13 mg/dL (0.55-1.02); TOTAL PROTEIN 6.9 g/dL (6.4-8.2); TROPONIN I 0.147 ng/mL (0.000-0.045)
[2021-02-22 08:57] LABS: MD NO
[2021-02-22] MEDS: ESMOLOL/NS PMX 250 ML IV PRN ×2 (11:04→18:33)
[2021-02-22] MEDS: LEVOTHYROXINE 200 MCG in SODIUM CHLORIDE 0.9% 500 ML IV SCH ×2 (11:30→12:10)
[2021-02-22] MEDS: REGULAR INSULIN 100 UNITS in SODIUM CHLORIDE 0.9% 99 ML IV SCH ×2 (11:38→13:54)
[2021-02-22 13:57] LABS: BASOPHILS % (AUTO) 0 % (0-1); EOSINOPHILS % (AUTO) 0 % (1-7); LYMPHOCYTES % (AUTO) 4 % (22-44); MEAN CORPUSCULAR HEMOGLOBIN 29.5 pg (27.0-34.8); MEAN CORPUSCULAR HGB CONC 32.8 g/dL (32.4-35.8); MEAN PLATELET VOLUME 9.6 fL (7.4-10.4); MONOCYTES % (AUTO) 4 % (2-9); NEUTROPHILS % (AUTO) 91 % (42-75); PLATELET COUNT 162 x10^3/uL (130-400); RED BLOOD COUNT 3.15 x10^6/uL (3.82-5.3); RED CELL DISTRIBUTION WIDTH 14.2 % (9.6-15.2)
[2021-02-22 14:09] LABS: INTERNATIONAL NORMALIZED RATIO 1.48 (0.93-1.1); PROTHROMBIN TIME 15.7 Seconds (9.6-11.5)
[2021-02-22 14:10] LABS: ANION GAP 11 mmol/L (5-15); CALCIUM 8.6 mg/dL (8.5-10.1); CHLORIDE 118 mmol/L (98-107)
[2021-02-22 14:11] LABS: BILIRUBIN, DIRECT < 0.1 mg/dL (0.1-0.2)
[2021-02-22 14:14] LABS: MD SCAN
[2021-02-22 14:18] LABS: ALANINE AMINOTRANSFERASE 23 U/L (12-78); ALKALINE PHOSPHATASE 69 U/L (45-117); BILIRUBIN,INDIRECT 0.1 mg/dL (0.0-2.0); BILIRUBIN,TOTAL 0.2 mg/dL (0.2-1.0); TOTAL PROTEIN 6.5 g/dL (6.4-8.2)
[2021-02-22] MEDS: PANTOPRAZOLE 40 MG IV IV SCH (20:03)
[2021-02-22 20:49] LABS: BASOPHILS % (AUTO) 0 % (0-1); EOSINOPHILS % (AUTO) 0 % (1-7); LYMPHOCYTES % (AUTO) 5 % (22-44); MEAN CORPUSCULAR HEMOGLOBIN 29.8 pg (27.0-34.8); MEAN PLATELET VOLUME 9.5 fL (7.4-10.4); MONOCYTES % (AUTO) 4 % (2-9); NEUTROPHILS % (AUTO) 91 % (42-75); PLATELET COUNT 166 x10^3/uL (130-400); RED BLOOD COUNT 2.77 x10^6/uL (3.82-5.3); RED CELL DISTRIBUTION WIDTH 14.4 % (9.6-15.2)
[2021-02-22 20:51] LABS: MD NO
[2021-02-22 20:54] LABS: ALBUMIN 2.1 g/dL (3.4-5.0); ANION GAP 9 mmol/L (5-15); CALCIUM 8.7 mg/dL (8.5-10.1); CHLORIDE 119 mmol/L (98-107); INTERNATIONAL NORMALIZED RATIO 1.52 (0.93-1.1); PROTHROMBIN TIME 16.1 Seconds (9.6-11.5)
[2021-02-22 20:57] LABS: ALANINE AMINOTRANSFERASE 23 U/L (12-78); ALKALINE PHOSPHATASE 68 U/L (45-117); BILIRUBIN, DIRECT 0.1 mg/dL (0.1-0.2); BILIRUBIN,INDIRECT 0.3 mg/dL (0.0-2.0); BILIRUBIN,TOTAL 0.4 mg/dL (0.2-1.0); CREATINE KINASE, TOTAL 92 U/L (26-192); CREATININE 4.09 mg/dL (0.55-1.02); TOTAL PROTEIN 6.7 g/dL (6.4-8.2); TROPONIN I 0.129 ng/mL (0.000-0.045)
[2021-02-22] MEDS: DEXTROSE 5% IV SCH (22:08)
[2021-02-22] MEDS: METHYLPREDNISOLONE SOD SUCC IV SCH (22:08)
[2021-02-23] MEDS ORDERED: FLUCONAZOLE 200 MG/100 ML 100 ML IV ONE (00:30)
[2021-02-23] MEDS: ESMOLOL/NS PMX 250 ML IV PRN ×2 (00:53→11:19)
[2021-02-23] MEDS: ARTIFICIAL TEARS 15 DROP/ML BOTTLE EACHEYE SCH ×6 (02:04→12:00)
[2021-02-23 02:15] LABS: BASOPHILS % (AUTO) 0 % (0-1); EOSINOPHILS % (AUTO) 0 % (1-7); LYMPHOCYTES % (AUTO) 5 % (22-44); MEAN CORPUSCULAR HEMOGLOBIN 30.3 pg (27.0-34.8); MEAN CORPUSCULAR HGB CONC 33.1 g/dL (32.4-35.8); MEAN PLATELET VOLUME 9.7 fL (7.4-10.4); MONOCYTES % (AUTO) 4 % (2-9); NEUTROPHILS % (AUTO) 91 % (42-75); PLATELET COUNT 180 x10^3/uL (130-400); RED BLOOD COUNT 2.77 x10^6/uL (3.82-5.3); RED CELL DISTRIBUTION WIDTH 14.5 % (9.6-15.2)
[2021-02-23 02:20] LABS: MD NO
[2021-02-23 02:26] LABS: ALANINE AMINOTRANSFERASE 22 U/L (12-78); ANION GAP 13 mmol/L (5-15); BILIRUBIN, DIRECT 0.2 mg/dL (0.1-0.2); CALCIUM 8.4 mg/dL (8.5-10.1); CHLORIDE 116 mmol/L (98-107); CREATININE 3.97 mg/dL (0.55-1.02); INTERNATIONAL NORMALIZED RATIO 1.54 (0.93-1.1); PROTHROMBIN TIME 16.3 Seconds (9.6-11.5)
[2021-02-23 02:28] LABS: ALKALINE PHOSPHATASE 67 U/L (45-117); BILIRUBIN,INDIRECT 0.2 mg/dL (0.0-2.0); BILIRUBIN,TOTAL 0.4 mg/dL (0.2-1.0); CREATINE KINASE, TOTAL 77 U/L (26-192); TOTAL PROTEIN 6.8 g/dL (6.4-8.2); TROPONIN I 0.095 ng/mL (0.000-0.045)
[2021-02-23 02:42] LABS: MICROSCOPIC INDICATED
[2021-02-23] MEDS: ALBUTEROL SULFATE 2.5MG/0.5ML NEB SCH ×4 (03:00→14:08)
[2021-02-23] MEDS ORDERED: INSULIN REGULAR 100 UNITS/ML, 3ML VIAL IVPush ONE ×4 (03:30→06:30)
[2021-02-23] MEDS: REGULAR INSULIN 100 UNITS in SODIUM CHLORIDE 0.9% 99 ML IV SCH ×3 (03:31→13:23)
[2021-02-23] MEDS: PIPERACILLIN/TAZO 2.25 GM in SODIUM CHLORIDE 0.9% 50 ML IVPB SCH ×2 (04:31→10:07)
[2021-02-23] MEDS: LEVOTHYROXINE 200 MCG in SODIUM CHLORIDE 0.9% 500 ML IV SCH (07:30)
[2021-02-23 08:52] LABS: BASOPHILS % (AUTO) 0 % (0-1); EOSINOPHILS % (AUTO) 0 % (1-7); LYMPHOCYTES % (AUTO) 6 % (22-44); MEAN CORPUSCULAR HEMOGLOBIN 30.1 pg (27.0-34.8); MEAN CORPUSCULAR HGB CONC 33.1 g/dL (32.4-35.8); MEAN PLATELET VOLUME 9.7 fL (7.4-10.4); MONOCYTES % (AUTO) 6 % (2-9); NEUTROPHILS % (AUTO) 88 % (42-75); PLATELET COUNT 169 x10^3/uL (130-400); RED BLOOD COUNT 3.17 x10^6/uL (3.82-5.3); RED CELL DISTRIBUTION WIDTH 14.6 % (9.6-15.2)
[2021-02-23 08:55] LABS: MD NO
[2021-02-23 09:04] LABS: ALANINE AMINOTRANSFERASE 22 U/L (12-78); ALBUMIN 2.1 g/dL (3.4-5.0); ANION GAP 9 mmol/L (5-15); CALCIUM 8.7 mg/dL (8.5-10.1); CHLORIDE 121 mmol/L (98-107); INTERNATIONAL NORMALIZED RATIO 1.53 (0.93-1.1); PROTHROMBIN TIME 16.2 Seconds (9.6-11.5)
[2021-02-23 09:06] LABS: ALKALINE PHOSPHATASE 62 U/L (45-117); BILIRUBIN, DIRECT 0.2 mg/dL (0.1-0.2); BILIRUBIN,TOTAL 0.2 mg/dL (0.2-1.0); CREATINE KINASE, TOTAL 57 U/L (26-192); CREATININE 4.02 mg/dL (0.55-1.02); TOTAL PROTEIN 6.6 g/dL (6.4-8.2); TROPONIN I 0.086 ng/mL (0.000-0.045)
[2021-02-23] MEDS ORDERED: POTASSIUM CHLORIDE 40 MEQ in SODIUM CHLORIDE 0.9% 100 ML IV ONE (10:00)
[2021-02-23] MEDS ORDERED: DEXTROSE 5% 500 ML IV ONE (10:00)
[2021-02-23] MEDS ORDERED: DEXTROSE 5% 1,000 ML IV SCH (10:00)
[2021-02-23 13:40] LABS: BASOPHILS % (AUTO) 0 % (0-1); EOSINOPHILS % (AUTO) 0 % (1-7); INTERNATIONAL NORMALIZED RATIO 1.57 (0.93-1.1); LYMPHOCYTES % (AUTO) 6 % (22-44); MEAN CORPUSCULAR HGB CONC 33.1 g/dL (32.4-35.8); MEAN PLATELET VOLUME 10.1 fL (7.4-10.4); MONOCYTES % (AUTO) 6 % (2-9); NEUTROPHILS % (AUTO) 89 % (42-75); PLATELET COUNT 138 x10^3/uL (130-400); PROTHROMBIN TIME 16.7 Seconds (9.6-11.5); RED BLOOD COUNT 4.19 x10^6/uL (3.82-5.3); RED CELL DISTRIBUTION WIDTH 14.8 % (9.6-15.2)
[2021-02-23 13:41] LABS: ALBUMIN 2.2 g/dL (3.4-5.0); ANION GAP 4 mmol/L (5-15); BILIRUBIN, DIRECT 0.2 mg/dL (0.1-0.2); CALCIUM 8.8 mg/dL (8.5-10.1); CHLORIDE 122 mmol/L (98-107)
[2021-02-23 13:44] LABS: CREATINE KINASE, TOTAL 48 U/L (26-192); CREATININE 3.93 mg/dL (0.55-1.02)
[2021-02-23 13:47] LABS: ALANINE AMINOTRANSFERASE 22 U/L (12-78); ALKALINE PHOSPHATASE 62 U/L (45-117); BILIRUBIN,INDIRECT 0.1 mg/dL (0.0-2.0); BILIRUBIN,TOTAL 0.3 mg/dL (0.2-1.0); TOTAL PROTEIN 6.7 g/dL (6.4-8.2)
[2021-02-23 13:55] LABS: MD NO
[2021-02-23] MEDS ORDERED: FENTANYL PF 250 MCG/5ML ONE ×2 (16:10→16:54)
[2021-02-23] MEDS ORDERED: ALBUMIN HUMAN 5% 1,000 ML ONE (16:10)
[2021-02-23] MEDS ORDERED: ROCURONIUM 10MG/ML,5ML ONE ×2 (16:11→16:48)
[2021-02-23] MEDS ORDERED: FUROSEMIDE 20 MG/2 ML ONE ×2 (17:20→17:22)
== END 2021-02-23 20:15 | disposition expired | DRG 941 ==
LOC: CCU 11:26 → UNDODISIN 17:00 → CCU 02-23 17:44 → ORIP 02-23 17:44 → UNDODISIN 02-26 14:37
PROC: 5A1945Z Respiratory Ventilation, 24-96 Consecutive Hours (ICD-10-PCS; 2021-02-20)
PROC: 0BH17EZ Insertion of Endotracheal Airway into Trachea, Via Natural or Artificial Opening (ICD-10-PCS; 2021-02-20)
PROC: 0T9B70Z Drainage of Bladder with Drainage Device, Via Natural or Artificial Opening (ICD-10-PCS; 2021-02-20)
PROC: 03H533Z Insertion of Infusion Device into Right Axillary Artery, Percutaneous Approach (ICD-10-PCS; 2021-02-21)
PROC: 0B968ZZ Drainage of Right Lower Lobe Bronchus, Via Natural or Artificial Opening Endoscopic (ICD-10-PCS; principal; 2021-02-22)
PROC: 0B948ZZ Drainage of Right Upper Lobe Bronchus, Via Natural or Artificial Opening Endoscopic (ICD-10-PCS; 2021-02-22)
PROC: 0B988ZZ Drainage of Left Upper Lobe Bronchus, Via Natural or Artificial Opening Endoscopic (ICD-10-PCS; 2021-02-22)
PROC: 0B958ZZ Drainage of Right Middle Lobe Bronchus, Via Natural or Artificial Opening Endoscopic (ICD-10-PCS; 2021-02-22)
PROC: 0B938ZZ Drainage of Right Main Bronchus, Via Natural or Artificial Opening Endoscopic (ICD-10-PCS; 2021-02-22)
PROC: 0B978ZZ Drainage of Left Main Bronchus, Via Natural or Artificial Opening Endoscopic (ICD-10-PCS; 2021-02-22)
PROC: 0BB Respiratory System, Excision (ICD-10-PCS; 2021-02-23)
DX: Z52.89 Donor of other specified organs or tissues (principal); Z20.822 Contact with and (suspected) exposure to COVID-19
CPT/HCPCS: 31624; 36415; 36600; 71045; 71250; 76700; 80048; 80076; 81001; 82150; 82330; 82550; 82803; 82962; 83036; 83605; 83690; 83735; 84100; 84484; 85025; 85610; 85730; 86850; 86900; 87015; 87040; 87070; 87075; 87086; 87102; 87116; 87205; 87206; 93005; 93306; 94002; 94003; 94640; 94667; G0378; J1815; J2543; J2930; J3010; J3480; J7070; P9045; P9047; C9113; J1450; J1940; J7040; J7050; J7060; U0003